=== PATIENT | male | born 1965 | race Caucasian/White ===

== ENCOUNTER 2017-08-06 08:26 | Observation (INO) | payer MEDICARE ==
[~2017-08-06] VITALS: Ht 182.9 cm; Wt 98.9 kg
[~2017-08-06 08:26] MED LIST: ASPIR 8181 M1 PO; LEVOTHYROXINE150 MCG PO; MICROZIDE12.5 M1 PO; NORCO 5/3251 TABLET PO; OMEGA 3 500 SO1 EACH PO; PROVENTIL HFA6.7 GM IH; TRICOR145 MG PO
[2017-08-06 09:06] LABS: HEMATOCRIT 41.5 % (38.0-50.0); HEMOGLOBIN 15.4 G/DL (12.5-16.6); MCH 34.1 PG (29.0-34.0); MCHC 37.1 G/DL (30.0-36.0); RBC DIS.WIDTH-CV 11.8 % (11.8-14.6); RBC DIS.WIDTH-SD 39.8 % (39-53); RED BLOOD COUNT 4.51 M/uL (4.00-5.50); WHITE BLOOD COUNT 4.6 K/uL (4.1-10.2)
[2017-08-06 09:15] LABS: CHLORIDE 99 mEq/L (99-109); SODIUM 134 mEq/L (136-147)
[2017-08-06 09:16] LABS: D-DIMER ELISA < 150.00 ng/mLDDU (<230)
[2017-08-06 09:17] LABS: GLUCOSE 102 mg/dL (70-99)
[2017-08-06 09:21] LABS: CREATININE 1.1 mg/dL (0.6-1.3); GFR ESTIMATE (CALCULATED) > 59 mL/min/ (58.99-99999)
[2017-08-06 09:22] LABS: UREA NITROGEN (BUN) 8 mg/dL (9-23)
[2017-08-06 09:26] LABS: TROP-I INTERPRETATION NEGATIVE; TROPONIN-I < 0.01 ng/mL (0.0-0.30)
[2017-08-06 09:47] LABS: PLAT.SUFFICIENCY ADEQUATE; PLATELET COUNT 286 K/uL (156-360)
[2017-08-06] MEDS ORDERED: VITAMIN D31000 UNI2 PO (10:52)
[2017-08-06] MEDS ORDERED: NORVASC5 MG PO (10:57)
[2017-08-06 11:55] LABS: ALBUMIN 4.3 g/dL (3.2-4.8); AMYLASE 34 IU/L (1-118); MAGNESIUM 2.1 mg/dL (1.3-2.7)
[2017-08-06 11:57] LABS: TOTAL PROTEIN 6.7 g/dL (6.4-8.3)
[2017-08-06 11:59] LABS: TOTAL BILIRUBIN 0.6 mg/dL (0.0-1.0)
[2017-08-06 12:00] LABS: ALKALINE PHOSPHATASE 65 IU/L (3-129)
[2017-08-06 12:02] LABS: AST (GOT) 25 IU/L (2-34); DIRECT BILIRUBIN 0.3 mg/dL (0.0-0.3)
[2017-08-06 12:03] LABS: ALT (GPT) 26 IU/L (3-49); LIPASE 35 U/L (1.0-51.0)
[2017-08-06 12:28] VITALS: BP 154/87
[2017-08-06 12:33] LABS: HDL CHOLESTEROL 53 MG/DL (Desirable>=40); LDL CHOLESTEROL 113 mg/dL (Desirable<100); NON-HDL CHOLESTEROL 138 mg/dL (Desirable<160); TOTAL CHOLESTEROL 191 mg/dL (Desirable<200); TRIGLYCERIDES 124 MG/DL (Normal: <150)
[2017-08-06 15:18] VITALS: BP 153/90
[2017-08-06 15:33] LABS: TROP-I INTERPRETATION NEGATIVE; TROPONIN-I < 0.01 ng/mL (0.0-0.30)
[2017-08-06 20:03] VITALS: BP 160/85
[2017-08-06 21:18] LABS: TROP-I INTERPRETATION NEGATIVE; TROPONIN-I < 0.01 ng/mL (0.0-0.30)
[2017-08-07 00:08] VITALS: BP 142/82
[2017-08-07 03:55] VITALS: BP 131/66
[2017-08-07 05:41] LABS: HEMATOCRIT 41.1 % (38.0-50.0); HEMOGLOBIN 14.8 G/DL (12.5-16.6); MCH 33.8 PG (29.0-34.0); MCV 93.8 FL (86-99); PLATELET COUNT 271 K/uL (156-360); RBC DIS.WIDTH-CV 11.9 % (11.8-14.6); RBC DIS.WIDTH-SD 41.2 % (39-53); RED BLOOD COUNT 4.38 M/uL (4.00-5.50); WHITE BLOOD COUNT 5.2 K/uL (4.1-10.2)
[2017-08-07 06:16] LABS: CHLORIDE 100 MEQ/L (99-109); CREATININE 1.3 MG/DL (0.6-1.3); GFR ESTIMATE (CALCULATED) > 59 mL/min/ (58.99-99999); GLUCOSE 94 mg/dL (70-99); POTASSIUM 4.2 MEQ/L (3.7-5.4); SODIUM 136 MEQ/L (136-147); UREA NITROGEN (BUN) 10 mg/dL (9-23)
[2017-08-07 08:15] VITALS: BP 125/66
[2017-08-07] MEDS ORDERED: Thiamine,Vitamin B1 PO (08:28)
[2017-08-07] MEDS ORDERED: FOLIC ACID1 MG PO (08:28)
== END 2017-08-07 11:12 | disposition home or self-care (01) ==
LOC: EME 08:26 → EDOF 11:16 → 4SOUTH 11:16 → ENRESERV 11:17 → 4SOUTH 12:21
PROVIDERS: Nurse Practitioner Adult Health; Nurse Practitioner Family
DX: R07.89 Other chest pain (principal); I10 Essential (primary) hypertension; F10.10 Alcohol abuse, uncomplicated; I25.10 Atherosclerotic heart disease of native coronary artery without angina pectoris; Z87.891 Personal history of nicotine dependence; E78.5 Hyperlipidemia, unspecified; E03.9 Hypothyroidism, unspecified; Z82.49 Family history of ischemic heart disease and other diseases of the circulatory system; R20.0 Anesthesia of skin; Z79.82 Long term (current) use of aspirin
CPT/HCPCS: 71046; 72125; 80048; 80061; 80076; 82150; 83690; 83735; 83880; 84484; 85027; 85379; 93005; 99281; 99285; G0378; J1885

== ENCOUNTER 2017-10-06 07:27 | Day surgery (SDC) | payer MEDICARE ==
[~2017-10-06] VITALS: Ht 182.9 cm; Wt 97.7 kg
[~2017-10-06 07:27] MED LIST changes: +FOLIC ACID1 MG PO; +NORVASC5 MG PO; +Thiamine,Vitamin B1 PO; +VITAMIN D31000 UNI2 PO
[2017-10-06 08:24] VITALS: BP 151/96
[2017-10-06] MEDS ORDERED: PERCOCET 5/31 TABLET PO (10:54)
[2017-10-06 11:20] VITALS: BP 138/89
[2017-10-06 12:20] VITALS: BP 142/80
[2017-10-06 14:19] VITALS: BP 144/78
== END 2017-10-06 14:20 | disposition home or self-care (01) ==
LOC: SDC 07:27
PROC: 0YUA0JZ Supplement Bilateral Inguinal Region with Synthetic Substitute, Open Approach (ICD-10-PCS; principal; 2017-10-06)
DX: K40.91 Unilateral inguinal hernia, without obstruction or gangrene, recurrent (principal); K40.90 Unilateral inguinal hernia, without obstruction or gangrene, not specified as recurrent; I25.10 Atherosclerotic heart disease of native coronary artery without angina pectoris; E03.9 Hypothyroidism, unspecified; E55.9 Vitamin D deficiency, unspecified; I25.2 Old myocardial infarction; R00.1 Bradycardia, unspecified; Z79.82 Long term (current) use of aspirin
CPT/HCPCS: C1727; C1781; J0330; J0690; J1100; J1170; J1885; J2250; J2405; J2710; J3010; J7643